=== PATIENT | male | born 1950 | race Two or more races ===

== ENCOUNTER → 2019-04-14 | Outpatient (CLI) | payer OTHER ==
[~2019-04-14] MED LIST: NORVASC5 MG PO; SIMVASTATIN5 MG PO
== END | disposition home or self-care (01) ==
LOC: RAD 11:20
DX: C20 Malignant neoplasm of rectum (principal); K92.2 Gastrointestinal hemorrhage, unspecified; Z85.048 Personal history of other malignant neoplasm of rectum, rectosigmoid junction, and anus; Z01.811 Encounter for preprocedural respiratory examination; Z08 Encounter for follow-up examination after completed treatment for malignant neoplasm

== ENCOUNTER 2019-04-15 13:00 | Inpatient (IN) | payer OTHER ==
[~2019-04-15] VITALS: Ht 172.7 cm; Wt 72.6 kg
== END 2019-04-30 17:08 | disposition home or self-care (01) | DRG 330 ==
LOC: EDSTATUS 13:00 → ADM 13:00 → SURH 04-20 07:00 → O/R 04-20 09:09 → SURH 04-20 09:09
PROVIDERS: ADMIT Colon & Rectal Surgery
PROC: 07BB4ZX Excision of Mesenteric Lymphatic, Percutaneous Endoscopic Approach, Diagnostic (ICD-10-PCS; 2019-04-20)
PROC: 07BC4ZX Excision of Pelvis Lymphatic, Percutaneous Endoscopic Approach, Diagnostic (ICD-10-PCS; 2019-04-20)
PROC: 0D1B4Z4 Bypass Ileum to Cutaneous, Percutaneous Endoscopic Approach (ICD-10-PCS; 2019-04-20)
PROC: 0DTN4ZZ Resection of Sigmoid Colon, Percutaneous Endoscopic Approach (ICD-10-PCS; principal; 2019-04-20 07:00)
PROC: 3E0F7GC Introduction of Other Therapeutic Substance into Respiratory Tract, Via Natural or Artificial Opening (ICD-10-PCS; 2019-04-21)
PROC: BQ37ZZZ Magnetic Resonance Imaging (MRI) of Right Knee (ICD-10-PCS; 2019-04-24)
PROC: 0SBC4ZZ Excision of Right Knee Joint, Percutaneous Endoscopic Approach (ICD-10-PCS; 2019-04-28)
DX: C18.7 Malignant neoplasm of sigmoid colon (principal); C77.2 Secondary and unspecified malignant neoplasm of intra-abdominal lymph nodes; J98.11 Atelectasis; R09.02 Hypoxemia; M25.461 Effusion, right knee; M94.261 Chondromalacia, right knee; M25.561 Pain in right knee; R59.0 Localized enlarged lymph nodes; I10 Essential (primary) hypertension
CPT/HCPCS: 73221